=== PATIENT | female | born 1980 | race Caucasian/White ===

== ENCOUNTER 2016-10-28 15:37 | Emergency (ER) | payer OTHER ==
--- NOTE | ~2016-10-28 | CR127 ---
[facility] A Service of [facility] & [facility] RADIOLOGY TEXT RESULTS PATIENT: KHANG NOVAK LOCATION: CFTX : 80 UNIT #: [id number] AGE: [address]: Lindsey Dominguez APRN SEX: F ORDER DR: [id number] [facility] [address] [place], [place] [address] [id number] E MR#: [id number] Acc #: [id number] NAME: KHANG NOVAK. : 1980 SEX: F STUDY DATE/TIME: 10/28/2016 17:13 UNIT: [facility] ROOM: STUDY DESCRIPTION: CR Foot Complete Min 3 View Rt Attending Physician: Lindsey Dominguez A.P.R.N. Ordering Physician: [facility] Primary Care Physician: No Primary Care Physician MEDICAL IMAGING REPORT This report is preliminary unless electronic signature is present EXAM Right foot 10/28/2016 INDICATIONS Right foot pain and swelling. FINDINGS 3 views of the right foot without comparison. No acute fracture or dislocation. No foreign body. IMPRESSION Negative right foot. Dictated by... Vance Jara M.D. THIS IS AN ELECTRONICALLY VERIFIED REPORT Vance Jara M.D. at 10/28/2016 6:27 PM Doroteo TD: 10/28/2016 18:26 JOB #: [id number] MEDICAL IMAGING REPORT Page 1 of 1 COPY
--- NOTE | ~2016-10-28 | CR21 ---
[facility] A Service of [facility] & [facility] RADIOLOGY TEXT RESULTS PATIENT: KHANG NOVAK LOCATION: CFTX : 80 UNIT #: [id number] AGE: [address]: Lindsey Dominguez APRN SEX: F ORDER DR: [id number] [facility] [address] [place], [place] [address] [id number] E MR#: [id number] Acc #: [id number] NAME: KHANG NOVAK. : 1980 SEX: F STUDY DATE/TIME: 10/28/2016 17:12 UNIT: [facility] ROOM: STUDY DESCRIPTION: CR Ankle Min 3 Views Rt Attending Physician: Lindsey Dominguez A.P.R.N. Ordering Physician: [facility] Primary Care Physician: No Primary Care Physician MEDICAL IMAGING REPORT This report is preliminary unless electronic signature is present EXAM Right ankle 10/28/2016 INDICATIONS Right ankle pain. Pain and swelling. FINDINGS 3 views of the right ankle without comparison. There is no acute fracture or dislocation. There are a few well corticated ossifications off the inferior tip of the medial malleolus and lateral malleolus. These are unchanged. There is a prominent talar beak also unchanged. No foreign body. There is some generalized soft tissue swelling. IMPRESSION Generalized soft tissue swelling. No acute findings. Dictated by... Vance Jara M.D. THIS IS AN ELECTRONICALLY VERIFIED REPORT Vance Jara M.D. at 10/28/2016 6:27 PM Doroteo TD: 10/28/2016 18:24 JOB #: [id number] MEDICAL IMAGING REPORT Page 1 of 1 COPY
[~2016-10-28 15:37] MED LIST: AMITRIPTYLINE H50 MG PO; AMOXICILLIN PO; BENADRYL PO; CELEXA PO; DARVOCET-N 1001 TAB PO; DIAZEPAM PO; FLEXERIL PO; FLEXERIL10 MG; FLEXERIL10 MG PO; HYDROCODON-ACE1 EAC4 PO; KLONOPIN PO; KLONOPIN0.5 MG PO; LORTAB 5/500 TA1 TA1 PO; MACROBID100 MG PO; MEDROL PO; METRONIDAZOLE PO; MUCINEX DM1 TAB.SR . PO; NO MEDICATIONS; NORCO 10/325 TA1 TAB PO; ORUDIS75 M1 PO; PHENERGAN PO; ROBAXIN500 MG PO; VICODIN 5/500 T1 TAB PO; ZANTAC PO; ZITHROMAX PO; ZOLOFT100 MG PO
== END 2016-10-28 18:08 | disposition home or self-care (01) ==
LOC: CFTX 15:37 → CED 15:37 → CFTX 17:43
DX: M25.571 Pain in right ankle and joints of right foot (principal); E11.9 Type 2 diabetes mellitus without complications; N80.9 Endometriosis, unspecified; Z90.49 Acquired absence of other specified parts of digestive tract; Z98.51 Tubal ligation status; Z98.890 Other specified postprocedural states; F17.210 Nicotine dependence, cigarettes, uncomplicated; Z88.1 Allergy status to other antibiotic agents; Z88.5 Allergy status to narcotic agent; Z88.8 Allergy status to other drugs, medicaments and biological substances; Z91.040 Latex allergy status; Z79.84 Long term (current) use of oral hypoglycemic drugs
CPT/HCPCS: 29515; 73610; 73630; 99283